=== PATIENT | male | born 1980 | race Caucasian/White ===

== ENCOUNTER 2018-02-10 18:05 | Emergency (ER) | payer BC ==
[2018-02-10] MEDS ORDERED: Amoxicillin/Clavulanate K 875-125 MG Tab ONE (19:00)
[2018-02-10] MEDS ORDERED: Acetaminophen/Codeine 300-30 MG Tab ONE (19:00)
[2018-02-10] MEDS ORDERED: Ketorolac 60 MG/2 ML SDV IM ONE (19:15)
[2018-02-10] MEDS ORDERED: Ketorolac 60 MG/2 ML SDV ONE (19:16)
--- NOTE | 2018-02-10 19:21 | EDM.PDOC ---
ED HPI GENERAL MEDICAL PROBLEM - General Chief Complaint: General Stated Complaint: TOOTH ACHE Time Seen by Provider: 02/10/18 18:50 Source of Information: Reports: Patient History Limitations: Reports: No Limitations - History of Present Illness INITIAL COMMENTS - FREE TEXT/NARRATIVE: According to patient he claims that he has been having pain in his left upper tooth since 3 PM. He does have bad teeth and ahs had few capped. No fever or chills. Pain is throbbing and rate at 10/10. No trauma tot he jaw or tooth. 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 Denies: Rhinitis, Throat Pain, Throat Swelling Respiratory: Denies: Cough, Sputum Cardiovascular: Denies: Chest Pain, Lightheadedness GI/Abdominal: Denies: Abdominal Pain, Nausea, Vomiting : Denies: Flank Pain, Frequency Skin: Denies: Pruritis, Rash ED EXAM, GENERAL - Physical Exam Exam: See Below Exam Limited By: No Limitations General Appearance: Alert, WD/WN, No Apparent Distress Eye Exam: Bilateral Eye: EOMI, PERRL Ears: Normal External Exam, Normal Canal, Hearing Grossly Normal, Normal TMs Ear Exam: Bilateral Ear: Auricle Normal, Canal Normal, TM normal Nose: Normal Inspection, Normal Mucosa, No Blood Throat/Mouth: Normal Inspection, Normal Lips, Other (There is erythema of the left molar tooth gingiva. also he is tender to tapping the teeth.) Head: Atraumatic, Normocephalic Neck: Normal Inspection, Supple, Non-Tender, Full Range of Motion Respiratory/Chest: No Respiratory Distress, Lungs Clear, Normal Breath Sounds, No Accessory Muscle Use, Chest Non-Tender Cardiovascular: Normal Peripheral Pulses, Regular Rate, Rhythm, No Edema, No Gallop, No JVD, No Murmur, No Rub Course - Vital Signs Text/Narrative:: Pt reassured, he has left upper molar tooth infection wtih gingivitis. Advised to alternate motrin 800mg with tylenol#3 500mg every 4 hrs. Augmentin 875mg PO twice daily for infection for 10 days. Lysterine mouth wash 2-3 times daily. Followup with dentist Last Recorded V/S: Last Vital Signs Temp 96.6 F 02/10/18 18:44 Pulse 69 02/10/18 18:44 Resp 18 02/10/18 18:44 BP 141/101 H 02/10/18 18:44 Pulse Ox 98 02/10/18 18:44 - Orders/Labs/Meds Orders: Active Orders 24 hr Category Date Time Status Ketorolac [Toradol] Med 02/10/18 19:15 Once 60 mg IM ONETIME ONE Meds: Medications Discontinued Medications Generic Name Dose Route Start Last Admin Trade Name Freq PRN Reason Stop Dose Admin Ketorolac Tromethamine Confirm 02/10/18 19:16 Toradol Administered 02/10/18 19:17 Dose 60 mg .ROUTE .STK-MED ONE Departure - Departure Time of Disposition: 19:30 Disposition: Home, Self-Care 01 Condition: Good Clinical Impression: Tooth abscess - Discharge Information Referrals: PCP,None [Primary Care Provider] - Additional Instructions: Pt reassured, he has left upper molar tooth infection wtih gingivitis. Advised to alternate motrin 800mg with tylenol#3 500mg every 4 hrs. Augmentin 875mg PO twice daily for infection for 10 days. Lysterine mouth wash 2-3 times daily. Followup with dentist - Problem List & Annotations (1) Tooth abscess SNOMED Code(s): 813259509 Code(s): K04.7 - PERIAPICAL ABSCESS WITHOUT SINUS Status: Acute Current Visit: Yes - Problem List Review Problem List Initiated/Reviewed/Updated: Yes - My Orders Last 24 Hours: My Active Orders 02/10/18 19:15 Ketorolac [Toradol] 60 mg IM ONETIME ONE - Assessment/Plan Last 24 Hours: My Active Orders 02/10/18 19:15 Ketorolac [Toradol] 60 mg IM ONETIME ONE Assessment:: Left upper molar tooth infection Plan: Pt reassured, he has left upper molar tooth infection wtih gingivitis. Advised to alternate motrin 800mg with tylenol#3 500mg every 4 hrs. Augmentin 875mg PO twice daily for infection for 10 days. Lysterine mouth wash 2-3 times daily. Followup with dentist
== END 2018-02-10 19:25 | disposition home or self-care (01) ==
LOC: LB.ED 18:05
DX: K04.7 Periapical abscess without sinus (principal)
CPT/HCPCS: 96372; 99282-25; A9270-GY; J1885

== ENCOUNTER 2020-05-21 19:47 | Emergency (ER) | payer MEDICAID, OTHER, SELFPAY ==
[2020-05-21] MEDS: Lidocaine 1% 20 ML MDV INJECT ONE (20:23)
[2020-05-21] MEDS ORDERED: Diphtheria,Pertussis(Acell),Tetanus Vaccine 0.5 ML SDV IM ONE (20:44)
--- NOTE | 2020-05-21 20:52 | EDM.PDOC ---
ED HPI GENERAL MEDICAL PROBLEM - General Chief Complaint: General Stated Complaint: PUNCTURE WOUND Time Seen by Provider: 05/21/20 20:05 Source of Information: Reports: Patient History Limitations: Reports: No Limitations - History of Present Illness INITIAL COMMENTS - FREE TEXT/NARRATIVE: Wilfrido barnett punctured patient's right thumb pad, v shaped laceration 1 x 1 cm noted. Patient needs tetanus. Area cleansed immediately after injury. CMS +, no tendon damage on exam. Onset: Today Location: Reports: Upper Extremity, Right Improves with: Reports: None Worsens with: Reports: None - Related Data Allergies Allergy/AdvReac Type Severity Reaction Status Date / Time No Known Allergies Allergy Verified 05/21/20 20:33 Home Meds: Home Meds NK [No Known Home Meds] 02/10/18 [History] ED ROS GENERAL - Review of Systems Review Of Systems: See Below Constitutional: Reports: No Symptoms HEENT: Reports: No Symptoms Respiratory: Reports: No Symptoms Cardiovascular: Reports: No Symptoms Endocrine: Reports: No Symptoms GI/Abdominal: Reports: No Symptoms : Reports: No Symptoms Musculoskeletal: Reports: No Symptoms Skin: Reports: Wound Neurological: Reports: No Symptoms Psychiatric: Reports: No Symptoms Hematologic/Lymphatic: Reports: No Symptoms ED EXAM, GENERAL - Physical Exam Exam: See Below Exam Limited By: No Limitations General Appearance: Alert, No Apparent Distress Head: Atraumatic Respiratory/Chest: No Respiratory Distress Back Exam: Full Range of Motion Extremities: Normal Range of Motion Neurological: Alert, Oriented, Normal Gait, No Motor/Sensory Deficits Psychiatric: Normal Affect, Normal Mood Skin Exam: Warm, Dry, Wound/Incision ED GENERAL MEDICAL PROCEDURES - Laceration/Wound Repair Right Distal Digit - 1st (Thumb) Lac/wound length in cm: 2 (1 x 1 v-shaped) Appearance: Clean, Mildly Contaminated Distal NVT: Neuro & Vascular Intact, No Tendon Injury Anesthetic Type: Local Local Anesthesia - Lidocaine (Xylocaine): 1% Plain Local Anesthetic Volume: 3cc Skin Prep: Chlorhexidine (Hibiciens), Saline Saline irrigation (cc's): 50 Exploration/Debridement/Repair: Wound Explored Closed with: Sutures Suture Size: 4-0 # of Sutures: 5 Suture Type: Nylon, Interrupted Course - Vital Signs Last Recorded V/S: Last Vital Signs Temp 98.6 F 05/21/20 20:05 Pulse 79 05/21/20 20:05 Resp 18 05/21/20 20:05 BP 117/72 05/21/20 20:05 Pulse Ox 98 05/21/20 20:05 - Orders/Labs/Meds Meds: Medications Discontinued Medications Generic Name Dose Route Start Last Admin Trade Name Katie PRN Reason Stop Dose Admin Diphtheria/Tetanus/Acell Pertussis 0.5 ml 05/21/20 20:44 Boostrix IM 05/21/20 20:45 .ONCE ONE Departure - Departure Time of Disposition: 22:00 Disposition: Home, Self-Care 01 Condition: Good Clinical Impression: Laceration - Discharge Information *PRESCRIPTION DRUG MONITORING PROGRAM REVIEWED*: Not Applicable *COPY OF PRESCRIPTION DRUG MONITORING REPORT IN PATIENT JESICA: Not Applicable Referrals: PCP,None [Primary Care Provider] - Additional Instructions: Watch for signs of infection as discussed. Sutures out in 7 days. Keep area clean and dry, no soaking. Return to ED for any increased or new concerning symptoms. Follow up with PMD as needed Sepsis Event Note (ED) - Evaluation Sepsis Screening Result: No Definite Risk - Focused Exam Vital Signs: Vital Signs Temp Pulse Resp BP Pulse Ox 05/21/20 20:05 98.6 F 79 18 117/72 98 - Assessment/Plan Plan: patient will have sutures removed in 7 days. Watch for signs of infection. He verbalized understanding of DC instructions, all questions were answered prior to DC
== END 2020-05-21 20:56 | disposition home or self-care (01) ==
LOC: LB.ED 19:47
DX: S61.031A Puncture wound without foreign body of right thumb without damage to nail, initial encounter (principal); Z23 Encounter for immunization; W23.0XXA Caught, crushed, jammed, or pinched between moving objects, initial encounter
CPT/HCPCS: 12001; 90471; 90715; 99282-25; J2001

== ENCOUNTER 2025-01-31 12:40 | Emergency (ER) | payer MEDICAID ==
[2025-01-31 13:43] LABS: BASOPHILS ABSOLUTE AUTO 0.01 K/uL (0.02-0.10); BASOPHILS PERCENT AUTO 0.1 % (0.0-0.5); EOSINOPHILS ABSOLUTE AUTO 0.19 K/uL (0.04-0.40); EOSINOPHILS PERCENT AUTO 1.9 % (1.0-5.0); HEMATOCRIT 50.7 % (40.0-54.0); HEMOGLOBIN 17.2 g/dL (13.0-18.0); LYMPHOCYTES ABSOLUTE AUTO 1.53 K/uL (1.50-4.00); LYMPHOCYTES PERCENT AUTO 15.7 % (20.0-40.0); MEAN CORPUSCULAR HEMOGLOBIN 32.4 pg (27.0-32.0); MEAN CORPUSCULAR HGB CONC 33.9 g/dL (31.0-35.0); MEAN CORPUSCULAR VOLUME 96 fL (76-96); MEAN PLATELET VOLUME 10.1 fL (6.0-10.0); MONOCYTES ABSOLUTE AUTO 0.62 K/uL (0.20-0.80); MONOCYTES PERCENT AUTO 6.4 % (3.0-10.0); NEUTROPHILS PERCENT AUTO 75.9 % (45.0-70.0); PLATELET COUNT,PLT 201 K/uL (150-400); RED BLOOD CELL COUNT 5.31 M/uL (4.50-6.50); RED CELL DISTRIBUTION WIDTH 12.5 % (11.0-16.0); WHITE BLOOD CELL COUNT,WBC 9.8 K/uL (4.0-11.0)
[2025-01-31 14:13] LABS: A/G RATIO 1.3 (0.8-2.0); ALBUMIN 4.2 g/dL (3.4-5.0); ANION GAP 9.2 mmol/L (5.0-15.0); BILIRUBIN TOTAL 0.5 mg/dL (0.0-1.0); BUN/CREATININE RATIO 11.6 (6-25); CALCIUM 8.8 mg/dL (8.5-10.1); CARBON DIOXIDE,CO2 31.2 mmol/L (21.0-32.0); CREATININE 1.29 mg/dL (0.70-1.30); EST CRCL DRUG DOSING (CG) 79.37 mL/min; POTASSIUM,K 4.4 mmol/L (3.5-5.1); PROTEIN TOTAL,TP 7.5 g/dL (6.4-8.2)
== END 2025-01-31 14:24 | disposition home or self-care (01) ==
LOC: LB.ED 12:40
DX: K62.5 Hemorrhage of anus and rectum (principal); F17.200 Nicotine dependence, unspecified, uncomplicated
CPT/HCPCS: 36415; 80053; 85025; 99284